=== PATIENT | female | born 1985 | race Caucasian/White ===

== ENCOUNTER 2019-12-01 08:07 | Emergency (ER) | payer BC, SELFPAY ==
[~2019-12-01] VITALS: Ht 160 cm; Wt 68.0 kg
[2019-12-01 08:07] VITALS: BP_SYST 127
--- NOTE | 2019-12-01 08:07 | NUR ---
Patient to ER tent for evaluation.
--- NOTE | 2019-12-01 08:08 | NUR ---
Patient is awake, alert, and oriented x4. Patient came in from work due to headache and genaralized malaise. No other complaints at this time. She has an 8 month old at home with a cold. Patient has recently come in to contact with 3 people that have lab confirmed COVID-19 tests. She denies repiratory distress at this time, vitals are WNL.
--- NOTE | 2019-12-01 08:34 | NUR ---
ER Dr. Hylton at bedside examining patient.
[2019-12-01 09:03] VITALS: BP_SYST 124
--- NOTE | 2019-12-01 09:03 | NUR ---
Patient given written and verbal discharge instructions and verbalizes understanding. ER MD discussed with patient the results and treatment provided. Patient in stable condition. ID arm band removed. Rx of Tylenol given. Patient educated on pain management and to follow up with PMD. Pain Scale 0/10. Opportunity for questions provided and answered. Medication side effect fact sheet provided.
== END 2019-12-01 09:03 | disposition home or self-care (01) ==
LOC: SED 08:07
DX: R51 Headache (principal); M79.18 Myalgia, other site; Z20.828 Contact with and (suspected) exposure to other viral communicable diseases
CPT/HCPCS: 99283; U0002